=== PATIENT | female | born 1980 | race Caucasian/White ===

== ENCOUNTER → 2022-06-20 12:50 | Outpatient (CLI) | payer OTHER, SELFPAY ==
--- NOTE | ~2022-06-20 | XR_ITS ---
EXAMINATION: XR fl inj knee RT for MR/CT DATE: 06/20/2022 13:39 INDICATION: Right knee pain. No prior surgery. TECHNIQUE: A time-out was performed to verify the patient's name, date of , and procedure to b e performed. The procedure including the risks, benefits, and alternatives was discussed with the pat ient. Risks discussed included bleeding and infection. The patient understood the risks and agreed to proceed. The skin overlying the right knee joint was prepped and draped in usual sterile fashion. A nesthetic was administered with 1% lidocaine subcutaneously. A 22 G needle was advanced under fluoro scopic guidance into the joint. Subsequently, injectate consisting of 30 mL of 1:200 Multihance, 1:4 1% lidocaine, and 1:4 Omnipaque 240 was instilled. The needle was removed and the entry site was cl eaned and dressed. There were no immediate complications. Fluoroscopy exposure time was 0.0 minutes. The total number of images was 2. FINDINGS: Real-time fluoroscopy demonstrates the needle and contrast in the right knee joint. IMPRESSION: 1. Successful right knee joint injection of contrast for subsequent MR arthrography. Reviewed, dictated and finalized at location A. Y ROLLER IMPRESSION: 1. Successful right knee joint injection of contrast for subsequent MR arthrogr aphy.
--- NOTE | ~2022-06-20 | MR_ITS ---
EXAMINATION: MR knee RT w con DATE: 06/20/2022 14:12 INDICATION: Generalized right knee pain on and off for years. TECHNIQUE: Magnetic resonance imaging (MRI) of the right knee was performed with intra-articular cont rast. Injection consisted of 30 mL 1:200 MultiHance, 1:4 1% lidocaine, and 1:4 Omnipaque 240. Sequenc es included axial PD-weighted FS FSE, coronal PD-weighted FSE and PD-weighted FS FSE, sagittal PD-kenia ghted FSE, and sagittal T2-weighted FS FSE. COMPARISON: None. FINDINGS: Medial compartment: Intact meniscus. Mild diffuse cartilage thinning. Lateral compartment: Intact meniscus. Intact lateral cartilage. Patellofemoral compartment: Intact cartilage. Intact retinacula. Ligaments and tendons: The ACL, PCL, MCL, and LCL are intact. The remaining flexor and extensor tendons are intact. Fluid: Intra-articular contrast adequately fills a normal-appearing joint capsule. Small bubble of nondepend ent air in the anterior joint. No unexpected or abnormal fluid collection. Osseous/other: No suspicious focal or diffuse marrow signal. IMPRESSION: 1. Mild medial compartment knee osteoarthritis. 2. Otherwise normal left knee MR findings. Reviewed, dictated and finalized at location K. RRAL CLERK
== END ==
DX: S83.241A Other tear of medial meniscus, current injury, right knee, initial encounter (principal); M17.11 Unilateral primary osteoarthritis, right knee; X58.XXXA Exposure to other specified factors, initial encounter
CPT/HCPCS: 20610; 73722; 77002; A9577; Q9967